=== PATIENT | male | born 1975 | race Caucasian/White ===

== ENCOUNTER 2024-12-20 09:30 | Emergency (ER) | payer OTHER, SELFPAY ==
--- NOTE | 2024-12-20 09:32 | XRR_ITS ---
PROCEDURE INFORMATION: Exam: XR Chest Exam date and time: 12/20/2024 9:41 AM Age: 49 years old Clinical indication: Cough TECHNIQUE: Imaging protocol: Radiologic exam of the chest. Views: 1 view. COMPARISON: No relevant prior studies available. FINDINGS: Lungs: There is a left mid lung zone consolidation, consistent with pneumonia. Pleural spaces: Unremarkable. No pleural effusion. No pneumothorax. Heart/Mediastinum: Unremarkable. No cardiomegaly. Bones/joints: Unremarkable. XR/XR chest 1V portable [id number] IMPRESSION: Left mid lung zone pneumonia, likely involving the superior segment of the left lower lobe.
[2024-12-20 09:39] VITALS: BP 112/63; PULSE 106; RESP 18; TEMP 36.8; O2SAT 94; BMI 21.5
--- NOTE | 2024-12-20 10:26 | W.ED.URI ---
HPI - URI/Sore Throat General: Chief Complaint: Upper Respiratory Infection Stated Complaint: sob, congestion Time Seen by Provider: 12/20/24 10:11 Source: patient Mode of arrival: ambulatory Limitations: no limitations History of Present Illness: 49-year-old male states he has been having cough congestion along with some shortness of breath over the last week. States his cough is worsened he is having some productive sputum he is a smoker denies any high fevers he said he has had some subjective fevers he is not requiring oxygen denies any worsening improving factors states he is to have a burning chest pain with his cough Associated symptoms: Reports chills and fever(s); Deny abdominal pain, chest pain, diarrhea, headache(s), nausea or vomiting Related Data Previous Rx's Medication Instructions Recorded doxycycline hyclate 150 mg tablet 150 mg PO BID #14 tabs 12/20/24 oseltamivir 75 mg capsule (Tamiflu) 75 mg PO BID 5 days #10 caps 12/20/24 Allergies Allergy/AdvReac Type Severity Reaction Status Date / Time No Known Allergies Allergy Verified 12/20/24 09:45 Review of Systems Const: Reports: fever(s), chills and body aches; Denies: change in appetite ENMT: Denies: throat pain or dental pain Card: Denies: chest pain Resp: Reports: dyspnea and productive cough GI: Denies: abdominal pain, nausea, vomiting or diarrhea Musc: Denies: neck pain or back pain Skin/Breast: Denies: rash Neuro: Denies: headache(s) Physical Exam Const: COMMON NORMALS: no acute distress, patient oriented x3 and healthy appearing HENMT: COMMON NORMALS: normocephalic and atraumatic HEAD & SCALP: normocephalic and atraumatic Eye: COMMON NORMALS: conjunctivae normal CONJUNCTIVA: Yes conjunctivae normal Neck/C-Spine: COMMON NORMALS: full ROM and supple Chest: COMMONS NORMALS: normal inspection of the chest Resp: COMMON NORMALS: No retractions and No use of accessory muscles AUSCULTATION: crackles Laterality: right Cardio: COMMON NORMALS: regular rate, regular rhythm and No murmurs present (Cardio) RATE: regular rate RHYTHM: regular rhythm GI: COMMON NORMALS: Normal to inspection, nondistended, normoactive bowel sounds present Extremity: COMMON NORMALS: normal to inspection and full ROM Neuro: COMMON NORMALS: patient oriented x3, moves all extremities and no focal motor deficits Psych: COMMON NORMALS: mental status grossly normal, Normal thought process present and cooperative THOUGHT PROCESS: Normal thought process present Skin: COMMON NORMALS: no rashes or lesions noted and no wounds GENERAL SKIN EXAM: no rashes or lesions noted Course Vital Signs: Vital signs: Vital Signs Temperature 98.2 F 12/20/24 09:39 Pulse Rate 106 H 12/20/24 09:39 Respiratory Rate 18 12/20/24 09:39 Blood Pressure 112/63 12/20/24 09:39 Pulse Oximetry 94 12/20/24 09:39 MDM - URI/Sore Throat Medical Decision Making Patient presents with pneumonia he also tested positive for influenza will start him on Tamiflu along with doxycycline he is not hypoxic informed he has any worsening symptoms he is to return he understands agrees to plan. Medical Records I reviewed the patient's medical records. Lab Data I reviewed the patient's lab results. 12/20/24 10:29 12/20/24 10:29 Radiology Impressions Chest X-Ray 12/20/24 09:32 IMPRESSION: Left mid lung zone pneumonia, likely involving the superior segment of the left lower lobe. Laboratory Results WBC 12.89 10^3/uL (3.29-11.43) H 12/20/24 10:29 RBC 5.44 10^6/uL (3.85-5.65) 12/20/24 10:29 Hgb 16.10 g/dL (11.27-16.99) 12/20/24 10:29 Hct 46.8 % (37-53) 12/20/24 10:29 MCV 86.0 fl (82-101) 12/20/24 10:29 MCH 29.6 pg (27-33) 12/20/24 10:29 MCHC 34.4 g/dL (30-55) 12/20/24 10:29 RDW 12.3 % (12.1-15.1) 12/20/24 10:29 Plt Count 120 10^3/cmm (157-399) L 12/20/24 10:29 MPV 9.4 fL (7.4-10.4) 12/20/24 10:29 Neut % (Auto) 89.0 % 12/20/24 10:29 Lymph % (Auto) 5.6 % 12/20/24 10:29 [place] % (Auto) 4.0 % 12/20/24 10: Eos % (Auto) 0.1 % 12/20/24 10: Baso % (Auto) 0.2 % 12/20/24 10: Neut # (Auto) 11.48 10^3/uL (1.8-7.7) H 12/20/24 10:29 Lymph # (Auto) 0.7 10^3/uL (0.8-4.8) L 12/20/24 10: [place] # (Auto) 0.5 10^3/uL (0.2-0.9) 12/20/24 10: Eos # (Auto) 0.0 10^3/uL (0.0-0.8) 12/20/24 10: Baso # (Auto) 0.0 10^3/uL (0.0-0.1) 12/20/24 10: Nucleated RBC % (auto) 0 % 12/20/24 10: Nucleated RBCs # 0.0 /100WBC 12/20/24 10: Sodium 129 mmol/L (136-145) L 12/20/24 10:29 Potassium 3.4 mmol/L (3.5-5.1) L 12/20/24 10: Chloride 89 mmol/L (98-107) L 12/20/24 10: Carbon Dioxide 23 mmol/L (22-29) 12/20/24 10: Anion Gap 20.4 (5-19) H 12/20/24 10:29 BUN 13 mg/dL (6-20) 12/20/24 10: Creatinine 1.0 mg/dL (0.7-1.2) 12/20/24 10: GFR Calculation 78.8 mL/min (90-130) L 12/20/24 10:29 Glucose 161 mg/dL (65-115) H 12/20/24 10: Calculated Osmolality 272 mOsm/kg (285-295) L 12/20/24 10:29 Calcium 8.6 mg/dL (8.5-10.5) 12/20/24 10: Total Bilirubin 0.7 mg/dL (0.15-1.2) 12/20/24 10:29 AST 21 U/L (0-40) 12/20/24 10:29 ALT 15 U/L (0-41) 12/20/24 10:29 Alkaline Phosphatase 52 U/L (40-130) 12/20/24 10:29 Total Protein 7.0 g/dL (6.6-8.7) 12/20/24 10:29 Albumin 3.8 g/dL (3.5-5.2) 12/20/24 10:29 Globulin 3.2 g/dL (1.3-4.6) 12/20/24 10:29 Coronavirus (PCR) Negative (Negative) 12/20/24 09:50 Influenza A (PCR) Positive (Negative) 12/20/24 09:50 Influenza Type B (PCR) Negative (Negative) 12/20/24 09:50 RSV (PCR) Negative (Negative) 12/20/24 09:50 All radiology interpretation(s) finalized by discharge Discharge Plan Discharge Patient Disposition: Home Clinical Impression: Influenza, Pneumonia Condition: Stable Prescriptions: New doxycycline hyclate 150 mg tablet 150 mg PO BID Qty: 14 0RF oseltamivir [Tamiflu] 75 mg capsule 75 mg PO BID 5 Days Qty: 10 0RF Discharge Orders: Discharge ED (Routine); Ordered 12/20/24 Ordered By: Flores Schaefer Discharge Diet: Advance as tolerated Discharge Activity: Resume usual activity Patient Instructions: Influenza (ED), Bacterial Pneumonia (ED) Coding Level of Care Code ED Client Services Specialist for Eddie Lee
[2024-12-20 10:35] LABS: Covid PCR NEGATIVE (Negative); Influenza A POSITIVE (Negative); Influenza B NEGATIVE (Negative); Respiratory Syncytial Virus Ce NEGATIVE (Negative)
[2024-12-20 10:35] LABS: Basophils % 0.2 %; Eosinophils % 0.1 %; Hematocrit 46.8 % (37-53); Lymphocytes # 0.7 10^3/uL (0.8-4.8); Lymphocytes % 5.6 %; Mean Corpuscular HGB Conc 34.4 g/dL (30-55); Mean Corpuscular Hemoglobin 29.6 pg (27-33); Mean Platelet Volume 9.4 fL (7.4-10.4); Monocytes # 0.5 10^3/uL (0.2-0.9); Neutrophils # 11.48 10^3/uL (1.8-7.7); Nucleated Red Blood Cells % 0 %; Platelet Count 120 10^3/cmm (157-399); Red Blood Count 5.44 10^6/uL (3.85-5.65); Red Cell Distribution Width 12.3 % (12.1-15.1); White Blood Count 12.89 10^3/uL (3.29-11.43)
[2024-12-20] MEDS: sodium chloride 0.9% 1,000 ML 999 ML IV (10:50)
[2024-12-20] MEDS: AZITHROMYCIN ADD-Vantage 500 MG in 0.9% NaCl ADD-Vantage 250 ML 250 MG IV (10:50)
[2024-12-20] MEDS: cefTRIAXone 1,000 mg SDV 1000 MG IVP (10:50)
[2024-12-20 10:52] LABS: Alanine Aminotransferase 15 U/L (0-41); Albumin Level 3.8 g/dL (3.5-5.2); Alkaline Phosphatase 52 U/L (40-130); Anion Gap 20.4 (5-19); Aspartate Amino Transferase 21 U/L (0-40); Blood Urea Nitrogen 13 mg/dL (6-20); Calcium 8.6 mg/dL (8.5-10.5); Carbon Dioxide 23 mmol/L (22-29); Chloride 89 mmol/L (98-107); Creatinine Clr Calc Pharmacy 87.7832; Globulin 3.2 g/dL (1.3-4.6); Glomerular Filtration Rate 78.8 mL/min (90-130); Glucose 161 mg/dL (65-115); Osmolality Calculated 272 mOsm/kg (285-295); Potassium 3.4 mmol/L (3.5-5.1); Sodium 129 mmol/L (136-145); Total Bilirubin 0.7 mg/dL (0.15-1.2)
--- NOTE | 2024-12-20 11:06 | ECG_ITS ---
[facility] 2024[facility]12[facility]20 Pat Name: Monetz Felipe Department: Room: Gender: Male Grab Jack Man: : 1975 Requested By: Flores Schaefer Order Number: [id number] Munoz MD: Gideon Boo M.D. Measurements Intervals [place]iteside Rate: 96 P: 78 GA: 149 QRS: 76 QRSD: 86 T: 62 QT: 337 QTc: 427 Interpretive Statements SINUS RHYTHM POSSIBLE LEFT ATRIAL ENLARGEMENT [-0.1mV P-WAVE IN V1/V2] POSSIBLE RIGHT VENTRICULAR CONDUCTION DELAY [RSR (QR) IN V1/V2] No previous ECG available for comparison Electronically Signed On 12-24-2024 22:25:35 GOVERNMENT PROPERTY INSPECTOR by Gideon Boo M.D. [email or web address]
[2024-12-20 11:35] VITALS: PULSE 110; O2SAT 95
[2024-12-20 11:55] VITALS: BP 128/71; PULSE 101; O2SAT 96
== END 2024-12-20 12:04 | disposition home or self-care (01) ==
PROVIDERS: Emergency Provider Emergency Medicine
DX: J10.1 Influenza due to other identified influenza virus with other respiratory manifestations (principal); J18.9 Pneumonia, unspecified organism; Z11.52 Encounter for screening for COVID-19
CPT/HCPCS: 36415; 71045; 80053; 85025; 87040; 87637; 93005; 96374; 96375; 99285; J0456; J0696; J7030; J7050